=== PATIENT | male | born 1940 | race Caucasian/White ===

== ENCOUNTER 2017-10-31 14:41 | Emergency (ER) | payer MEDICARE ==
[~2017-10-31] VITALS: Ht 165.1 cm; Wt 88.0 kg
[~2017-10-31 14:41] MED LIST: AMLODIPINE BESYL5 MG PO; MAVIK4 MG PO
[2017-10-31] MEDS ORDERED: ELIQUIS5 MG PO (16:18)
== END 2017-10-31 16:26 | disposition home or self-care (01) ==
LOC: ED 14:41
DX: I82.401 Acute embolism and thrombosis of unspecified deep veins of right lower extremity (principal); I10 Essential (primary) hypertension; Z79.899 Other long term (current) drug therapy
CPT/HCPCS: 80048; 85025; 85610; 85730; 99283

== ENCOUNTER 2021-04-01 17:49 | Emergency (ER) | payer MEDICARE ==
[~2021-04-01] VITALS: Ht 165.1 cm; Wt 88.0 kg
[~2021-04-01 17:49] MED LIST changes: +ELIQUIS5 MG PO
== END 2021-04-01 19:23 | disposition home or self-care (01) ==
LOC: ED 17:49
DX: H11.32 Conjunctival hemorrhage, left eye (principal); I10 Essential (primary) hypertension; Z79.899 Other long term (current) drug therapy
CPT/HCPCS: 99283